=== PATIENT | male | born 1990 | race African-American/Black ===

== ENCOUNTER 2017-04-06 20:58 | Emergency (ER) | payer SELFPAY ==
[~2017-04-06] VITALS: Ht 177.8 cm; Wt 72.6 kg
[~2017-04-06 20:58] MED LIST: ALBUTEROL SULF8.5 GM INH; IBUPROFEN600 MG ORAL; NKM; PREDNISONE20 MG ORAL; ROBAXIN-750750 MG PO
[2017-04-06 21:12] VITALS: BP 126/85
[2017-04-06] MEDS ORDERED: IBUPROFEN600 MG ORAL (21:31)
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
[2017-04-06 21:46] VITALS: BP 124/85
== END 2017-04-06 21:50 | disposition home or self-care (01) ==
LOC: EMR 21:25
DX: M54.9 Dorsalgia, unspecified (principal); V43.52XA Car driver injured in collision with other type car in traffic accident, initial encounter; Y92.89 Other specified places as the place of occurrence of the external cause; R07.9 Chest pain, unspecified; M25.511 Pain in right shoulder
CPT/HCPCS: 99283

== ENCOUNTER 2017-04-09 06:01 | Emergency (ER) | payer SELFPAY ==
[~2017-04-09] VITALS: Ht 177.8 cm; Wt 72.6 kg
[2017-04-09] MEDS ORDERED: Famotidine 20 MG/ 2ML VIAL IVP ONE (06:30)
[2017-04-09] MEDS ORDERED: DuoNeb 0.5-3(2.5)mg/3ml neb HHN ONE (06:30)
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
[2017-04-09 06:54] LABS: BASOPHILS % (AUTO) 0.7 % (0.0-2.0); EOSINOPHILS % (AUTO) 0.9 % (0.0-3.0); LYMPHOCYTES % (AUTO) 9.5 % (20.0-45.0); MEAN CORPUSCULAR HEMOGLOBIN 29.6 PG (27.0-31.0); MEAN CORPUSCULAR HGB CONC 32.6 G/DL (32.0-36.0); MEAN CORPUSCULAR VOLUME 91 FL (80-99); MEAN PLATELET VOLUME 7.2 FL (6.5-10.1); MONOCYTES % (AUTO) 4.6 % (1.0-10.0); NEUTROPHILS % (AUTO) 84.3 % (45.0-75.0); PLATELET COUNT 179 K/UL (150-450); RED BLOOD COUNT 4.68 M/UL (4.70-6.10); RED CELL DISTRIBUTION WIDTH 12.6 % (11.6-14.8); WHITE BLOOD COUNT 9.6 K/UL (4.8-10.8)
[2017-04-09 07:00] LABS: TROPONIN I < 0.30 ng/mL (<=0.30)
[2017-04-09 07:01] LABS: ALANINE AMINOTRANSFERASE 16 U/L (3-41); ALBUMIN/GLOBULIN RATIO 1.7 (1.0-2.7); ANION GAP 12 (5-15); ASPARTATE AMINO TRANSFERASE 15 U/L (5-40); CALCIUM 9.2 mg/dL (8.6-10.2); CARBON DIOXIDE 26 mEQ/L (20-30); CHLORIDE 101 mEQ/L (98-107); GLOMERULAR FILTRATION RATE > 60 mL/min (>60); HEMOLYSIS 7; POTASSIUM 3.4 mEQ/L (3.4-4.9); SODIUM 139 mEQ/L (135-145); TOTAL PROTEIN 6.7 g/dL (6.6-8.7)
[2017-04-09 07:19] LABS: KETONES,URINE NEGATIVE (NEGATIVE); LEUKOCYTE ESTERASE ,URINE NEGATIVE (NEGATIVE); NITRITE,URINE NEGATIVE (NEGATIVE); PH,URINE 7 (4.5-8.0); PROTEIN,URINE NEGATIVE (NEGATIVE); UROBILINOGEN,URINE NORMAL MG/DL (0.0-1.0)
[2017-04-09 07:20] LABS: APPEARANCE,URINE CLEAR
[2017-04-09] MEDS ORDERED: VENTOLIN HFA18 GM INH (07:38)
[2017-04-09] MEDS ORDERED: PREDNISONE20 MG ORAL (07:38)
[2017-04-09] MEDS ORDERED: Albuterol ud Inhalation HHN ONE (07:45)
[2017-04-09] MEDS ORDERED: PredniSONE 20mg tab ORAL ONE (07:45)
[2017-04-09 07:52] LABS: BACTERIA,URINE OCCASIONAL /HPF; RBC,URINE 0 /HPF (0 - 0); SQUAMOUS EPITHELIAL CELL,UR OCCASIONAL /LPF (NONE/OCC); WBC,URINE 0-2 /HPF (0 - 0)
[2017-04-09 08:05] VITALS: BP 156/96
[2017-04-09 09:17] VITALS: BP 124/77
--- NOTE | 2017-04-10 08:29 | Diagnostic Imaging Report ---
Indication: Dyspnea Comparison: 07/27/14 A single view chest radiograph was obtained. Findings: Accounting for lung volumes, there is no acute disease identified. Heart size is accentuated but may be normal accounting for the low lung volumes present. No obvious infiltrate identified. Bones are unremarkable. Impression: No acute disease. Limited evaluation
== END 2017-04-09 09:10 | disposition home or self-care (01) ==
LOC: EMR 07:45
DX: J45.909 Unspecified asthma, uncomplicated (principal); R07.89 Other chest pain; R51 Headache; R11.2 Nausea with vomiting, unspecified
CPT/HCPCS: 36415; 71010; 80053; 80300; 81001; 84484; 85025; 86850; 86900; 86901; 93005; 94640; 94664; 96374; 99284; S0028; J7620

== ENCOUNTER 2019-10-23 12:48 | Emergency (ER) | payer SELFPAY ==
[~2019-10-23] VITALS: Ht 177.8 cm; Wt 77.1 kg
[~2019-10-23 12:48] MED LIST changes: +VENTOLIN HFA18 GM INH
[2019-10-23 12:57] VITALS: BP 141/85
[2019-10-23] MEDS ORDERED: ZYPREXA10 MG ORAL (13:01)
[2019-10-23] MEDS ORDERED: Ketorolac 30mg Inj IV ONE (13:15)
--- NOTE | 2019-10-23 13:29 | Emergency Room Report ---
History of Present Illness General Chief Complaint: Pain Source: Patient Present Illness HPI 29yo M medical problems presents to the ER for left flank pain that started last night, he reports he felt a pop, he was not doing anything in particular when he noticed it. He is fevers, chills, urinary complaints such as hematuria dysuria, retention, denies urethral discharge, penile or genital lesions, testicular pain or swelling, vomiting, diarrhea, nausea, any other complaints. He reports the pain is constant, sharp, severe, nonradiating, with no obvious alleviating or exacerbating factors and has not tried medications for symptoms. Allergies: Coded Allergies: No Known Allergies (Unverified , 04/06/17) Patient History Past Medical History: see triage record Reviewed Nursing Documentation: PMH: Agreed; PSxH: Agreed Nursing Documentation-PMH Past Medical History: No Stated History Hx Asthma: No Review of Systems All Other Systems: negative except mentioned in HPI Physical Exam Vital Signs Date Time Temp Pulse Resp B/P (MAP) Pulse Ox O2 Delivery O2 Flow Rate FiO2 10/23/19 12:57 98.4 97 16 141/85 97 Room Air Sp02 EP Interpretation: reviewed, normal General Appearance: no apparent distress, alert, non-toxic Head: normocephalic Eyes: bilateral eye normal inspection, bilateral eye PERRL, bilateral eye EOMI ENT: normal ENT inspection, hearing grossly normal, normal pharynx, no angioedema, normal voice, moist mucus membranes Neck: normal inspection, full range of motion, supple, supple/symm/no masses Respiratory: chest non-tender, lungs clear, normal breath sounds, chest symmetrical, palpation of chest normal Cardiovascular #1: normal peripheral pulses, regular rate, rhythm Cardiovascular #2: 2+ radial (R), 2+ radial (L), 2+ dorsalis pedis (R), 2+ dorsalis pedis (L) Gastrointestinal: normal inspection, non tender, soft, no mass, no guarding, no rebound Rectal: deferred Genitourinary: normal inspection, no CVA tenderness, penis normal, scrotum normal Musculoskeletal: back normal, normal range of motion, no calf tenderness, gait/ station normal, non-tender Neurologic: alert, motor strength/tone normal, [employer]et [employer] III-XII nml as tested, sensory intact, responsive, speech normal Psychiatric: judgement/insight normal, memory normal, mood/affect normal Lymphatic: no adenopathy Medical Decision Making Diagnostic Impression: Primary Impression: Left flank pain ER Course Patient's examination is completely unremarkable, he is still pending labs, urinalysis, and CT scan. I suspect muscle skeletal pain. Torrential diagnosis includes kidney stones, pyelonephritis, musculoskeletal pain. I have lower suspicion for renal artery thrombosis, renal artery dissection, or other vascular pathology. Patient was given 15 mg Toradol, normal saline, Flexeril, and will be signed out to oncoming physician pending results of work-up. CT/MRI/US Diagnostic Results CT/MRI/US Diagnostic Results : Imaging Test Ordered: ct abd/pelvis Last Vital Signs Date Time Temp Pulse Resp B/P (MAP) Pulse Ox O2 Delivery O2 Flow Rate FiO2 10/23/19 12:57 98.4 97 16 141/85 (103) 97 Room Air Disposition: HOME, SELF-CARE Condition: Stable MARIYA WALLACE M.D Oct 23, 2019 13:29
[2019-10-23 13:48] LABS: ANION GAP 8 mmol/L (5-15); BLOOD UREA NITROGEN 17 mg/dL (7-18); CALCIUM 8.9 MG/DL (8.5-10.1); CARBON DIOXIDE 27 MMOL/L (21-32); CHLORIDE 105 MMOL/L (98-107); SODIUM 140 MMOL/L (136-145)
[2019-10-23 13:52] LABS: ALANINE AMINOTRANSFERASE 42 U/L (12-78); ALBUMIN/GLOBULIN RATIO 1.3 (1.0-2.7); ALKALINE PHOSPHATASE 62 U/L (46-116); ASPARTATE AMINO TRANSFERASE 24 U/L (15-37); BILIRUBIN,TOTAL 0.4 MG/DL (0.2-1.0)
[2019-10-23 14:00] LABS: BASOPHILS % (AUTO) 0.8 % (0.0-2.0); EOSINOPHILS % (AUTO) 0.2 % (0.0-3.0); HEMATOCRIT 44.2 % (42.0-52.0); HEMOGLOBIN 14.2 G/DL (14.2-18.0); LYMPHOCYTES % (AUTO) 22.6 % (20.0-45.0); MEAN CORPUSCULAR VOLUME 91 FL (80-99); MONOCYTES % (AUTO) 5.2 % (1.0-10.0); NEUTROPHILS % (AUTO) 71.2 % (45.0-75.0); PLATELET COUNT 218 K/UL (150-450); RED BLOOD COUNT 4.88 M/UL (4.70-6.10); RED CELL DISTRIBUTION WIDTH 12.4 % (11.6-14.8); WHITE BLOOD COUNT 7.6 K/UL (4.8-10.8)
[2019-10-23 14:05] LABS: APPEARANCE,URINE CLEAR; BILIRUBIN, URINE NEGATIVE (NEGATIVE); GLUCOSE, URINE (UA) NEGATIVE (NEGATIVE); KETONES,URINE 1+ (NEGATIVE); LEUKOCYTE ESTERASE ,URINE NEGATIVE (NEGATIVE); NITRITE,URINE NEGATIVE (NEGATIVE); PH,URINE 6 (4.5-8.0); PROTEIN,URINE 1+ (NEGATIVE); UROBILINOGEN,URINE 1 MG/DL (0.0-1.0)
[2019-10-23 14:10] LABS: COLOR,URINE YELLOW
--- NOTE | 2019-10-23 16:19 | Diagnostic Imaging Report ---
Indication: Left flank pain since last night Technique: Spiral acquisitions obtained through the abdomen and pelvis. No oral or IV contrast utilized, per urinary stone protocol. Multiplanar reconstructions were generated. Total dose length product 1371 mGycm. CTDIvol(s) 24 mGy. Dose reduction achieved using automated exposure control Comparison: 10/25/2016 Findings: No renal or ureteral calculi demonstrated. No hydronephrosis or hydroureter. No bladder calculi. Lack of IV contrast limits assessment of the renal parenchyma. No gross renal parenchymal mass or cyst demonstrated. Lack of IV contrast limits assessment of the other solid organs. The liver, gallbladder, bile ducts, pancreas, spleen, adrenals are unremarkable. No retroperitoneal or mesenteric mass or adenopathy. No pelvic mass or adenopathy. The appendix is not definitely demonstrated. No findings to suggest acute appendicitis are evident. No evidence of colonic diverticulosis or diverticulitis. No small bowel distention. No free or loculated intraperitoneal gas or fluid is evident. The included lung bases are clear. The bones are unremarkable. Impression: Essentially unremarkable exam Negative for evidence of obstructive uropathy or urinary stone disease Nonvisualized appendix The CT scanner at [facility] is accredited by the [employer] and the scans are performed using protocols designed to limit radiation exposure to as low as reasonably achievable to attain images of sufficient resolution adequate for diagnostic evaluation.
--- NOTE | 2019-10-23 17:58 | Emergency Room Report ---
Physical Exam Vital Signs Date Time Temp Pulse Resp B/P (MAP) Pulse Ox O2 Delivery O2 Flow Rate FiO2 10/23/19 12:57 98.4 97 16 141/85 97 Room Air Medical Decision Making Diagnostic Impression: Primary Impression: Left flank pain ER Course Care assumed from Dr Magaña. Patient pending ct and reassessment. CT/MRI/US Diagnostic Results CT/MRI/US Diagnostic Results : Impression Procedure: CT Abdomen Pelvis WO Contrast Indication: Left flank pain since last night Technique: Spiral acquisitions obtained through the abdomen and pelvis. No oral or IV contrast utilized, per urinary stone protocol. Multiplanar reconstructions were generated. Total dose length product 1371 mGycm. CTDIvol(s) 24 mGy. Dose reduction achieved using automated exposure control Comparison: 10/25/2016 Findings: No renal or ureteral calculi demonstrated. No hydronephrosis or hydroureter. No bladder calculi. Lack of IV contrast limits assessment of the renal parenchyma. No gross renal parenchymal mass or cyst demonstrated. Lack of IV contrast limits assessment of the other solid organs. The liver, gallbladder, bile ducts, pancreas, spleen, adrenals are unremarkable. No retroperitoneal or mesenteric mass or adenopathy. No pelvic mass or adenopathy. The appendix is not definitely demonstrated. No findings to suggest acute appendicitis are evident. No evidence of colonic diverticulosis or diverticulitis. No small bowel distention. No free or loculated intraperitoneal gas or fluid is evident. The included lung bases are clear. The bones are unremarkable. Impression: Essentially unremarkable exam Negative for evidence of obstructive uropathy or urinary stone disease Nonvisualized appendix Last Vital Signs Date Time Temp Pulse Resp B/P (MAP) Pulse Ox O2 Delivery O2 Flow Rate FiO2 10/23/19 14:08 98.4 10/23/19 12:57 97 16 141/85 (103) 97 Room Air Reevaluation Impression CT reviewed. wnl. Pt reported feeling better. patient dc with follow up at PMD, given copies of all studies. Disposition: HOME, SELF-CARE Condition: Stable Referrals: NOT CHOSEN IPA/,REFERRING (PCP) [facility] Pal Goncalves. [facility] Patient Instructions: Back Pain, Adult Additional Instructions: Follow-up with primary care doctor or clinic above to be reevaluated in 1 to 2 days Jaylon Osman M.D. 17, 2019 17:58
[2019-10-23 18:16] VITALS: BP 140/85
== END 2019-10-23 18:16 | disposition home or self-care (01) ==
LOC: EMR 14:27
DX: R10.9 Unspecified abdominal pain (principal)
CPT/HCPCS: 36415; 74176; 80053; 81003; 83690; 85025; 96374; 99284; J1885; J7040